=== PATIENT | female | born 1960 | race Caucasian/White ===

== ENCOUNTER 2017-01-23 23:09 | Inpatient (IN) ==
[2017-01-24] MEDS ORDERED: NORCO-5 PO ONE (00:02)
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
[2017-01-24] MEDS ORDERED: XYLOCAINE-MPF 1% ONE ×2 (01:19→01:53)
--- NOTE | 2017-01-24 01:35 | EKG Report ---
Test Performed on : 01/24/2017 01:20:32 AM Test Reason : trauma Blood Pressure : / mmHG Vent. Rate : 076 BPM Atrial Rate : 076 BPM P-R Int : 130 ms QRS Dur : 074 ms QT Int : 380 ms P-R-T Axes : 081 071 065 degrees QTc Int : 427 ms Normal sinus rhythm. Nonspecific ST abnormality Abnormal ECG No previous ECGs available Unconfirmed Result
[2017-01-24] MEDS ORDERED: ZOFRAN ONE (01:46)
[2017-01-24] MEDS ORDERED: MORPHINE ONE (01:46)
[2017-01-24 01:50] LABS: AGAP 11; ALBUMIN 4.3 g/dL (3.5-5.0); ALKALINE PHOSPHATASE 67 U/L (32-104); BUN 9 mg/dL (8-22); CALCIUM 8.8 mg/dL (8.8-10.2); CHLORIDE 103 mmol/L (98-107); COSMO 280; GOT 29 U/L (10-30); GPT 19 U/L (10-36); POTASSIUM 3.2 mmol/L (3.5-5.1); SODIUM 139 mmol/L (136-145); TCO2 25 mmol/L (25-35); TOTAL PROTEIN 6.6 g/dL (6.3-8.3)
[2017-01-24 01:55] LABS: BASO% 0.1 % (0.0-0.8); HEMOGLOBIN 13.1 g/dL (12.0-16.0); IMM GRAN# 0.06 X1000 (0.0-0.04); IMM GRAN% 0.3 % (0.0-0.5); LYMPH# 0.95 X1000 (1.2-3.4); MANUAL DIFF NEEDED? NO; MCHC 34.5 g/dL (33-37); MCV 87.2 FL (81-99); MONO# 1.22 X1000 (0.11-0.59); MONO% 6.4 % (1.7-9.3); MPV 9.1 FL (7.4-10.4); NEUT% 88.2 % (42.2-75.2); PLT 281 X1000 (130-400); RBC 4.36 XMIL (4.2-5.4)
[2017-01-24] MEDS ORDERED: SODIUM CHLORIDE 0.9% INJ ONE (02:23)
[2017-01-24] MEDS ORDERED: MORPHINE IV ONE (02:33)
[2017-01-24] MEDS ORDERED: ZOFRAN IV ONE (02:33)
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
[2017-01-24] MEDS: PHENERGAN IV PRN ×2 (03:56→20:07)
[2017-01-24] MEDS: NORCO-7.5 PO PRN ×3 (03:57→20:07)
[2017-01-24] MEDS: D5 1/2 NS + KCL 20 MEQ 1,000 ML IV SCH ×3 (03:59→17:10)
[2017-01-24] MEDS: TORADOL IV SCH ×3 (04:00→07:32)
[2017-01-24] MEDS: MORPHINE IV PRN ×5 (04:00→20:06)
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
--- NOTE | 2017-01-24 06:05 | Diag Imaging Result Doc PS360 ---
EXAM: CT THORAX W/O CONTRAST HISTORY: injury TECHNIQUE: COMPARISON: None. FINDINGS: There is a moderate-sized right-sided pneumothorax with atelectasis to the right lung. No mediastinal shift. Mild displacement to a posterolateral right third rib. I believe there is a nondisplaced fracture to the second rib. No pleural effusions. No blood in the mediastinum. No cardiomegaly. No enlarged lymph nodes. Mild emphysema. IMPRESSION: 1. Moderate right-sided pneumothorax. 2. Fractures to the right third rib and likely second rib. 3. A preliminary report was given at 1:25 AM Electronically signed by Darrell Hollingsworth 01/24/2017 6:03 AM
--- NOTE | 2017-01-24 06:06 | Diag Imaging Result Doc PS360 ---
EXAM: FEMUR MIN 2 VIEWS RIGHT HISTORY: injury TECHNIQUE: Four views COMPARISON: None. FINDINGS: No fracture. No dislocation. IMPRESSION: No acute bony injury. Electronically signed by Darrell Hollingsworth 01/24/2017 6:03 AM
--- NOTE | 2017-01-24 06:11 | Diag Imaging Result Doc PS360 ---
EXAM: RIBS UNILAT W/PA CHEST RIGHT HISTORY: Injury TECHNIQUE: Chest and right rib detail, five views COMPARISON: None. FINDINGS: There is a small to moderate-sized right-sided pneumothorax. No shift of the mediastinum. Mild displacement posterior lateral right third rib fracture. Questionable nondisplaced second rib fracture. No pleural effusions. IMPRESSION: Fracture to the right third rib with a small to moderate-sized pneumothorax. Electronically signed by Darrell Hollingsworth 01/24/2017 6:09 AM
--- NOTE | 2017-01-24 06:29 | Diag Imaging Result Doc PS360 ---
EXAM: CHEST-PORTABLE HISTORY: chest tube placement TECHNIQUE: Portable COMPARISON: Compared to films taken at 12:41 AM. FINDINGS: Interval placement of a right-sided chest tube. Interval decrease in the size of the right pneumothorax. Lungs are well expanded. IMPRESSION: There is only a tiny right apical pneumothorax following placement of the right sided chest tube. Electronically signed by Darrell Hollingsworth 01/24/2017 6:26 AM
--- NOTE | 2017-01-24 10:50 | PROGRESS NOTE ---
DATE: 01/24/2017 Earlier this morning in the emergency department I placed a right chest tube for right rib fractures and a pneumothorax. This morning she has no air leak, or it is very small. We will maintain her right chest tube on suction, start her on incentive spirometry, have her get up in a chair. We will repeat her chest x-ray in the morning. Probably put her on water seal and try to get her chest tube out as long as she has no air leak. She continues to hurt in her right chest and will treat that with p.o. and IV pain medicine as needed. cc: Diane Winn MD
[2017-01-24] MEDS ORDERED: FLEXERIL PO PRN (12:34)
[2017-01-25] MEDS: MORPHINE IV PRN ×2 (05:30→16:53)
[2017-01-25] MEDS: D5 1/2 NS + KCL 20 MEQ 1,000 ML IV SCH (05:33)
[2017-01-25] MEDS ORDERED: PHENERGAN IV PRN (07:04)
--- NOTE | 2017-01-25 08:14 | Diag Imaging Result Doc PS360 ---
EXAM: CHEST-2 VIEWS HISTORY: R rib fxs and pneumothorax. TECHNIQUE: PA and Lateral chest x-ray COMPARISON: 01/24/2017 FINDINGS: There is a right chest tube in place. Side port abuts the lateral ribs. There is a tiny right apical pneumothorax. The cardiomediastinal silhouette is within normal limits. The pulmonary vasculature is not congested. No infiltrate or effusion is appreciated. Fracture of the right third posterior rib is again demonstrated. IMPRESSION: Tiny right apical pneumothorax. Right chest tube. Electronically signed by Ruthie Almanza 01/25/2017 8:12 AM
[2017-01-25] MEDS: NORCO-7.5 PO PRN ×2 (11:56→16:16)
--- NOTE | 2017-01-25 16:41 | Diag Imaging Result Doc PS360 ---
EXAM: CHEST-2 VIEWS HISTORY: pneumothorax TECHNIQUE: PA and Lateral chest x-ray COMPARISON: 01/25/2017 FINDINGS: The cardiomediastinal silhouette is within normal limits. Right chest tube remains in place. Tiny right apical pneumothorax persists. There are mildly increased markings at the bases and mild blunting of the costophrenic angle posteriorly on the lateral view suggesting small effusion and mild bibasilar atelectasis. Right third rib fracture is again demonstrated. The pulmonary vasculature is not congested. IMPRESSION: Somewhat suboptimal inspiration with minimal bibasilar atelectasis and trace posterior effusion. Tiny right apical pneumothorax with right chest tube in position. No large area of consolidation. Electronically signed by Ruthie Almanza 01/25/2017 4:38 PM
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
[2017-01-26] MEDS: NORCO-7.5 PO PRN ×2 (04:15→09:27)
--- NOTE | 2017-01-26 07:33 | Diag Imaging Result Doc PS360 ---
EXAM: CHEST-2 VIEWS HISTORY: Removal of R chest tube. TECHNIQUE: Portable AP and lateral at 0629 COMMENT: There is opacity in the posterior costophrenic angles, particularly the left lower lobe. This is worse than on 01/25/2017. The chest tube which was present on the right has been removed. There is no evidence of residual pneumothorax. IMPRESSION: Worsening atelectasis in the lung bases posteriorly. Electronically signed by Zachary Gibson 01/26/2017 7:30 AM
[2017-01-26 08:47] VITALS: BP 111/56
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
== END 2017-01-26 10:15 | disposition home or self-care (01) ==
LOC: P.ED 23:09 → P.MEDSURG 23:10
PROVIDERS: ADMIT Surgery; ATTEND Surgery